=== PATIENT | male | born 1940 | race Caucasian/White ===

== ENCOUNTER → 2020-08-09 | Outpatient (CLI) | payer MEDICARE, BC ==
[~2020-08-09] MED LIST: BUPIVACAINE HCL 0.25% P/F 10 ML VIAL ONE; GADOTERIDOL 279.3mg/mL 20ml Vial IV ONE; LIDOCAINE 2%HCL (LOCAL ANESTH.) INJ 20ML MDV ONE
== END | disposition home or self-care (01) ==
LOC: XY 08:42
PROVIDERS: ATTEND Orthopaedic Surgery Adult Reconstructive Orthopaedic Surgery
DX: M25.552 Pain in left hip (principal); Z79.899 Other long term (current) drug therapy; Z98.890 Other specified postprocedural states
CPT/HCPCS: 20610; 73501; 77002; A9579; J3490; 76000

== ENCOUNTER → 2020-11-15 | Outpatient (CLI) | payer MEDICARE, BC ==
[~2020-11-15] MED LIST changes: -GADOTERIDOL 279.3mg/mL 20ml Vial IV ONE; +IOHEXOL 300 MG/ML 100ML BOTTLE IJ ONE; +methylPREDNISolone ACETATE 80 MG/ML VL ONE
== END | disposition home or self-care (01) ==
LOC: XY 08:16
PROVIDERS: ATTEND Orthopaedic Surgery Adult Reconstructive Orthopaedic Surgery
DX: M25.552 Pain in left hip (principal); Z98.890 Other specified postprocedural states; Z79.899 Other long term (current) drug therapy
CPT/HCPCS: 20610; 77002; J1040; J3490; Q9967; 73501; 76000

== ENCOUNTER → 2022-06-13 | Outpatient (CLI) | payer MEDICARE, BC ==
[~2022-06-13] MED LIST changes: +LIDOCAINE 2% (LOCAL ANESTH.) PF 5ml SDV ONE; -LIDOCAINE 2%HCL (LOCAL ANESTH.) INJ 20ML MDV ONE
== END | disposition home or self-care (01) ==
LOC: XYW 09:45
PROVIDERS: ATTEND Orthopaedic Surgery Adult Reconstructive Orthopaedic Surgery
DX: M25.552 Pain in left hip (principal)
CPT/HCPCS: 20610; 73501; J1040; J2001; J3490; Q9967; 76000

== ENCOUNTER → 2022-12-26 | Outpatient (CLI) | payer MEDICARE, BC ==
[~2022-12-26] MED LIST changes: -IOHEXOL 300 MG/ML 100ML BOTTLE IJ ONE
== END | disposition home or self-care (01) ==
LOC: XYW 10:12
PROVIDERS: ATTEND Orthopaedic Surgery Adult Reconstructive Orthopaedic Surgery
DX: M16.12 Unilateral primary osteoarthritis, left hip (principal)
CPT/HCPCS: 20610; 73501; 76000; J1040; J2001; J3490; Q9967

== ENCOUNTER → 2023-03-20 | Outpatient (CLI) | payer MEDICARE, BC ==
[~2023-03-20] MED LIST changes: -LIDOCAINE 2% (LOCAL ANESTH.) PF 5ml SDV ONE; +LIDOCAINE 2%HCL (LOCAL ANESTH.) INJ 10ml MDV ONE
== END | disposition home or self-care (01) ==
LOC: XYW 09:23
PROVIDERS: ATTEND Orthopaedic Surgery Adult Reconstructive Orthopaedic Surgery
DX: M16.12 Unilateral primary osteoarthritis, left hip (principal)
CPT/HCPCS: 20610; 73501; 76000; J1040; J2001; J3490